=== PATIENT | female | born 1995 | race Caucasian/White ===

== ENCOUNTER 2018-04-15 08:25 | Emergency (ER) | payer MEDICAID ==
[~2018-04-15] VITALS: Ht 154.9 cm; Wt 85.7 kg
[2018-04-15 08:34] VITALS: Ht 154.9 cm; Wt 85.7 kg
[2018-04-15 09:27] LABS: BASOPHIL % 1.8 % (0-2); PLATELET COUNT 287 x10^3mcL (130-400); RED CELL DISTRIBUTION WIDTH 13.7 % (11.5-14.5)
[2018-04-15 09:31] LABS: AMPHETAMINE QUAL UR NONE DETECTED (See below)
[2018-04-15 09:33] LABS: ALBUMIN 3.8 g/dL (3.4-5.0); ALKALINE PHOSPHATASE 116 U/L (46-116); ALT/SGPT 15 U/L (14-59); AMYLASE 62 U/L (25-115); AST/SGOT 13 U/L (15-37); BILIRUBIN TOTAL 0.41 mg/dL (0.20-1.00); CALCIUM 9.3 mg/dL (8.5-10.1); CARBON DIOXIDE 20.7 mmol/L (21-32); CHLORIDE SERUM 107 mmol/L (98-107); CREATININE SERUM 0.9 mg/dL (0.6-1.0); GFR1 > 60 mL/min; GLUCOSE SERUM 118 mg/dL (74-106); LIPASE 163 IU/L (73-393); POTASSIUM SERUM 3.6 mmol/L (3.5-5.1); SODIUM SERUM 141 mmol/L (136-145)
[2018-04-15 09:34] LABS: TOTAL PROTEIN, SERUM 8.3 g/dL (6.4-8.2)
[2018-04-15 12:15] LABS: UA SPECIFIC GRAVITY >=1.030 (1.005-1.035); microscopic required? YES; urine erythrocyte TRACE (NEGATIVE)
[2018-04-15 13:39] VITALS: BP 125/64
== END 2018-04-15 13:39 | disposition home or self-care (01) ==
LOC: ED 08:25
PROVIDERS: Emergency Medicine
DX: R10.9 Unspecified abdominal pain (principal); J45.909 Unspecified asthma, uncomplicated; F12.188 Cannabis abuse with other cannabis-induced disorder
CPT/HCPCS: J1630; J1885; J2060; J2405; J7030